=== PATIENT | male | born 2005 | race Caucasian/White ===

== ENCOUNTER 2024-09-30 21:01 | Emergency (ER) | payer OTHER, SELFPAY ==
[2024-09-30 21:04] VITALS: BP 125/86
--- NOTE | 2024-09-30 23:03 | ED.GENMED ---
History of Present Illness
General
Chief Complaint: Musculo-Skeletal Complaint
Source: patient
Exam Limitations: none
Time Seen by Provider: 09/30/24 21:46
Nursing documentation reviewed up to this point in time: agreed with
History of Present Illness
History of Present Illness:
18-year-old male with no reported chronic medical issues presents with his dad for evaluation of a right elbow injury. 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
him and hyperextended his right elbow. He has had some pain with range of motion since. Denies any shoulder or wrist pain. He denies any swelling. No numbness or tingling. No other injuries or complaints.
Review of Systems
Review of Systems
All Other Systems: ROS reviewed and negative except as documented in HPI and ROS
Musculoskeletal: Reports joint pain; Denies joint swelling
Phy Exam
Physical Exam
Physical Exam:
General: Well appearing and non-toxic
HEENT: protecting airway
Neck: appears supple
CV: No evidence of cyanosis
Resp: No accessory muscle use
Abd: Non-distended
Extremities: No deformities, no swelling of the right elbow, mild tenderness of the lateral epicondyle, no tenderness olecranon or medial epicondyle, no tenderness along the biceps, no tenderness of the shoulder or wrist on the right, no edema, good
strong right radial pulse, motor and sensory intact median, radial, ulnar nerve distribution in the right upper extremity; on range of motion of the right elbow he has pain at extremes of flexion and extension but he is able to move through full
active range of motion no pain on supination and pronation of the forearm
Neuro: Alert
Psych: Normal affect
Skin: Intact
Scores
Heart Failure Risk
Heart Failure Risk Score: Not Applicable
Heart Score for Chest Pain Patients
STEMI patient?: Not applicable
Withdrawal Assessment of Alcohol
Withdrawal Assessment Completed?: Not applicable
Course
Orders/Labs/Results
Orders:
Orders
09/30/24 21:14
CR Elbow - Right Min 3 Views Urgent
Comment:
Reason For Exam: fall/pain
Vital Signs
Initial and Last Documented VS:
Initial Vital Signs
Temp Pulse Resp Pulse Ox
36.3 C 80 18 95
09/30/24 21:02 09/30/24 21:02 09/30/24 21:02 09/30/24 21:02
Last Documented Vital Signs
Temp Pulse Resp BP Pulse Ox
36.3 C 80 18 125/86 95
09/30/24 21:02 09/30/24 21:02 09/30/24 21:02 09/30/24 21:04 09/30/24 21:02
MDM/Problems Addressed
Differential Diagnosis Includes:
Fracture, dislocation, sprain, bicep injury, tendinitis/bursitis, UCL injury
MDM/Problems Addressed:
18-year-old male presents for evaluation of right elbow injury after hyperextending it while playing soccer. Vitals and exam as above. X-ray of the elbow reviewed by me shows no acute abnormalities. No signs of joint effusion. Suspect likely
mild sprain. Advised regarding RICE. All questions answered.
*Radiology
Radiology exam reviewed: preliminary read by ED provider and radiology read reviewed
*Pulse Oximetry
Patient hypoxic: no (95%)
*Critical Care Note
Total Time (30-74mins, 75-104mins- exclusive of procedures): Not Applicable
Data Reviewed
Source: patient and family
ED Attending Note
-
Portions of this chart may have been created with voice recognition software.� Occasional wrong word or��sound alike� substitutions may have occurred due to the inherent limitations of voice recognition software.
Discharge Plan
Departure
Patient Disposition: Home (Routine Discharge)
Date of Disposition: 09/30/24
Time of Disposition: 22:49
Patient with high blood pressure during this ER visit?: No
Discharge Problem:
Elbow sprain
Instructions: Elbow Sprain ED
Referrals:
Kris Ratliff MD [Family Provider, [facility]] - Follow up in 1 week
Activity Restrictions/Additional Instructions:
Thank you for visiting the Emergency Department at [facility].
1. Please schedule a follow up appointment as directed. Call first thing tomorrow morning to make an appointment.
2. If indicated, please take your medications as instructed and indicated on discharge paperwork.
3. If any of your symptoms do not improve, or persist, or become more severe within 6-12 hours, please return to the emergency department for further care.
4. Please return to the emergency department if you develop a headache, neck pain/stiffness, fever greater than 100.4F, chest pain, shortness of breath, persistent nausea, vomiting, slurred speech, difficulty walking, numbness/tingling, weakness,
signs of infection or any other symptoms that are worrisome to you.
Please call [phone] if you have any questions.
Interventions
Interventions:
*Risk Screen - Suicide Last Done: 09/30/24 21:03
*General Assessment Last Done: 09/30/24 21:04
*Neglect/Abuse Screening Last Done: 09/30/24 21:03
*ED- Fall Risk Assessment Last Done: 09/30/24 21:21
*ED COVID-19 Vaccine History Last Done: 09/30/24 21:04
*Nursing Disposition Last Done: 09/30/24 22:55
ED-Musculoskeletal Assessment Last Done: 09/30/24 21:21
Discharge Date and Time
Discharge Date/Time: 09/30/24 22:56
Print Language: IRISH
== END 2024-09-30 22:56 | disposition home or self-care (01) ==
LOC: EMR 21:01
PROVIDERS: EMERGENCY PHYSICIAN Emergency Medicine; FAMILY PHYSICIAN Family Medicine
DX: S53.401A Unspecified sprain of right elbow, initial encounter (principal); X50.1XXA Overexertion from prolonged static or awkward postures, initial encounter; Y93.66 Activity, soccer
CPT/HCPCS: 99283; 73080